=== PATIENT | female | born 1935 | race Asian ===

== ENCOUNTER 2016-06-18 14:16 | Outpatient (CLI) | payer OTHER ==
[~2016-06-18 14:16] MED LIST: ACID REDUCE PO; ALPR0.2566 PO; BENZ100C8 PO; CYCLOSPORINE100 M1 OR; CYCLOSPORINE100 M1 PO; DOXYCYCL HYC100 M1 OR; FE TABS325 MG PO; HYDR10TA10 PO; LOTENSIN HCT1 TAB PO; MACROBID100 MG OR; MEGE40SU6 PO; NEURONTIN 100M100 MG OR; PENTOXIFYLLINE400 M1 PO; PRAVACHOL20 MG PO; PREDNISOLONE1 % OPTH; PREDNISONE10 MG PO; SULFASALAZIN500 M1 PO; TRIA0.1C19 TOP; TRIA0.1C5 TOP; WARFARIN5 MG PO
[2016-06-18 15:33] LABS: POTASSIUM 3.6 mmol/L (3.6-5.2)
[2016-06-18 15:40] LABS: PLATELET COUNT 191 K/uL (152-353)
== END 2016-06-18 19:10 | disposition home or self-care (01) ==
LOC: LABW 14:16
PROVIDERS: Nurse Practitioner Family
DX: M25.562 Pain in left knee (principal); M25.561 Pain in right knee; R60.0 Localized edema
CPT/HCPCS: 36415; 80053; 85027; 85610

== ENCOUNTER 2017-10-27 14:43 | Outpatient (CLI) | payer OTHER ==
[2017-10-27 15:58] LABS: PLATELET COUNT 207 K/uL (152-353)
[2017-10-27 16:21] LABS: POTASSIUM 3.4 mmol/L (3.6-5.2)
== END 2017-10-27 22:47 | disposition home or self-care (01) ==
LOC: LABW 14:43
PROVIDERS: Internal Medicine Nephrology
DX: N18.3 Chronic kidney disease, stage 3 (moderate) (principal); E78.4 Other hyperlipidemia
CPT/HCPCS: 36415; 80053; 85027

== ENCOUNTER 2019-03-24 12:03 | Outpatient (CLI) | payer OTHER ==
[2019-03-24 12:37] LABS: POTASSIUM 3.9 mmol/L (3.6-5.2)
== END 2019-03-24 20:16 | disposition home or self-care (01) ==
LOC: LABW 12:03
PROVIDERS: Internal Medicine Nephrology
DX: N18.3 Chronic kidney disease, stage 3 (moderate) (principal); R60.0 Localized edema; E78.49 Other hyperlipidemia; L12.8 Other pemphigoid; E56.9 Vitamin deficiency, unspecified
CPT/HCPCS: 36415; 80048

== ENCOUNTER 2019-11-01 10:24 | Outpatient (CLI) | payer OTHER ==
[2019-11-01 10:54] LABS: PLATELET COUNT 174 K/uL (152-353)
== END 2019-11-01 19:03 | disposition home or self-care (01) ==
LOC: LABW 10:24
PROVIDERS: Internal Medicine Nephrology
DX: E56.8 Deficiency of other vitamins (principal); E78.49 Other hyperlipidemia; L12.8 Other pemphigoid; N18.3 Chronic kidney disease, stage 3 (moderate); R60.0 Localized edema
CPT/HCPCS: 36415; 80053; 82306; 83970; 84100; 85027

== ENCOUNTER 2021-05-23 10:42 | Outpatient (CLI) | payer OTHER | END 2021-05-23 19:57 | disposition home or self-care (01) | LOC: US 10:42 | PROVIDERS: ATTEND Nurse Practitioner Family | DX: E04.1 Nontoxic single thyroid nodule (principal) ==

== ENCOUNTER 2021-07-14 09:35 | Outpatient (CLI) | payer OTHER ==
[2021-07-14 10:31] LABS: PLATELET COUNT 377 K/uL (152-353)
== END 2021-07-14 19:09 | disposition home or self-care (01) ==
LOC: LABW 09:35
PROVIDERS: ATTEND Internal Medicine Nephrology
DX: E56.8 Deficiency of other vitamins (principal); E78.49 Other hyperlipidemia; L12.8 Other pemphigoid; N18.4 Chronic kidney disease, stage 4 (severe); N25.81 Secondary hyperparathyroidism of renal origin; R60.0 Localized edema; R82.998 Other abnormal findings in urine
CPT/HCPCS: 36415; 81000; 82306; 82570; 82610; 82728; 83540; 83550; 83970; 84156; 85027; 87077; 87086; 87088; 87185

== ENCOUNTER 2021-10-21 08:38 | Outpatient (CLI) | payer OTHER ==
[2021-10-21 09:31] LABS: PLATELET COUNT 184 K/uL (152-353)
[2021-10-21 09:36] LABS: POTASSIUM 3.8 mmol/L (3.6-5.2)
== END 2021-10-21 18:50 | disposition home or self-care (01) ==
LOC: LABW 08:38
PROVIDERS: ATTEND Internal Medicine Nephrology
DX: D64.9 Anemia, unspecified (principal); N18.9 Chronic kidney disease, unspecified; Z79.01 Long term (current) use of anticoagulants; N18.4 Chronic kidney disease, stage 4 (severe); N18.30 Chronic kidney disease, stage 3 unspecified; R60.0 Localized edema; E78.5 Hyperlipidemia, unspecified; N25.81 Secondary hyperparathyroidism of renal origin; L12.9 Pemphigoid, unspecified; E56.9 Vitamin deficiency, unspecified
CPT/HCPCS: 36415; 80069; 81002; 82306; 82570; 82728; 83540; 83550; 83970; 84156; 85027

== ENCOUNTER 2021-11-17 10:50 | Outpatient (CLI) | payer OTHER | END 2021-11-17 18:58 | disposition home or self-care (01) | LOC: RAD 10:50 | PROVIDERS: ATTEND Nurse Practitioner Family | DX: M25.561 Pain in right knee (principal) ==

== ENCOUNTER 2021-11-28 14:54 | Outpatient (CLI) | payer OTHER | END 2021-11-28 19:12 | disposition home or self-care (01) | LOC: LABW 14:54 | PROVIDERS: ATTEND Nurse Practitioner Family | DX: D64.89 Other specified anemias (principal) | CPT/HCPCS: 82272 ==

== ENCOUNTER 2022-02-23 14:27 | Outpatient (CLI) | payer OTHER ==
[2022-02-23 15:28] LABS: POTASSIUM 3.7 mmol/L (3.6-5.2)
== END 2022-02-23 20:03 | disposition home or self-care (01) ==
LOC: LABW 14:27
PROVIDERS: ATTEND Internal Medicine Nephrology
DX: E56.9 Vitamin deficiency, unspecified (principal); E78.49 Other hyperlipidemia; L12.8 Other pemphigoid; D64.89 Other specified anemias; N18.4 Chronic kidney disease, stage 4 (severe); N25.81 Secondary hyperparathyroidism of renal origin; R60.0 Localized edema; Z79.01 Long term (current) use of anticoagulants; I12.9 Hypertensive chronic kidney disease with stage 1 through stage 4 chronic kidney disease, or unspecified chronic kidney disease
CPT/HCPCS: 36415; 80069; 81002; 82306; 83735; 83970; 85027

== ENCOUNTER 2022-02-25 11:13 | Outpatient (CLI) | payer OTHER ==
[2022-02-25 12:36] LABS: PLATELET COUNT 169 K/uL (152-353)
== END 2022-02-25 23:59 | disposition home or self-care (01) ==
LOC: LAB 11:13
PROVIDERS: ATTEND Internal Medicine Nephrology
DX: E56.8 Deficiency of other vitamins (principal); E78.49 Other hyperlipidemia; L12.8 Other pemphigoid; D64.89 Other specified anemias; N18.4 Chronic kidney disease, stage 4 (severe); N25.81 Secondary hyperparathyroidism of renal origin; R60.0 Localized edema; Z79.01 Long term (current) use of anticoagulants; I12.9 Hypertensive chronic kidney disease with stage 1 through stage 4 chronic kidney disease, or unspecified chronic kidney disease
CPT/HCPCS: 36415; 85027

== ENCOUNTER 2022-07-01 10:23 | Outpatient (CLI) | payer OTHER ==
[2022-07-01 10:57] LABS: PLATELET COUNT 168 K/uL (152-353)
[2022-07-01 11:02] LABS: POTASSIUM 3.7 mmol/L (3.6-5.2)
== END 2022-07-01 22:56 | disposition home or self-care (01) ==
LOC: LABW 10:23
PROVIDERS: ATTEND Internal Medicine Nephrology
DX: E56.9 Vitamin deficiency, unspecified (principal); E78.49 Other hyperlipidemia; L12.9 Pemphigoid, unspecified; D64.89 Other specified anemias; N18.4 Chronic kidney disease, stage 4 (severe); N25.81 Secondary hyperparathyroidism of renal origin; R60.0 Localized edema; Z79.01 Long term (current) use of anticoagulants; I12.9 Hypertensive chronic kidney disease with stage 1 through stage 4 chronic kidney disease, or unspecified chronic kidney disease; R82.998 Other abnormal findings in urine
CPT/HCPCS: 36415; 80069; 81000; 82306; 82570; 82728; 83540; 83550; 83970; 84156; 85027; 87086; 87088

== ENCOUNTER 2022-07-20 12:42 | Outpatient (CLI) | payer OTHER | END 2022-07-20 19:03 | disposition home or self-care (01) | LOC: MRI 12:42 | PROVIDERS: ATTEND Nurse Practitioner Family | DX: I12.9 Hypertensive chronic kidney disease with stage 1 through stage 4 chronic kidney disease, or unspecified chronic kidney disease (principal); N18.9 Chronic kidney disease, unspecified; R55 Syncope and collapse; R56.9 Unspecified convulsions; I67.9 Cerebrovascular disease, unspecified; Z79.01 Long term (current) use of anticoagulants ==

== ENCOUNTER 2022-10-22 11:02 | Outpatient (CLI) | payer OTHER ==
[2022-10-22 12:02] LABS: PLATELET COUNT 233 K/uL (152-353)
[2022-10-22 12:27] LABS: POTASSIUM 4.1 mmol/L (3.6-5.2)
== END 2022-10-22 19:22 | disposition home or self-care (01) ==
LOC: LABW 11:02
PROVIDERS: ATTEND Internal Medicine Nephrology
DX: E56.9 Vitamin deficiency, unspecified (principal); E78.49 Other hyperlipidemia; L12.8 Other pemphigoid; D64.89 Other specified anemias; N18.4 Chronic kidney disease, stage 4 (severe); R82.998 Other abnormal findings in urine
CPT/HCPCS: 36415; 80069; 81000; 82043; 82306; 82728; 83540; 83550; 83970; 84156; 85027; 87077; 87086; 87088; 87185; 87186

== ENCOUNTER 2023-05-10 16:11 | Outpatient (CLI) | payer OTHER ==
[~2023-05-10 16:11] MED LIST changes: +AMLODIPINE BESYLATE PO; +ASCO500T18 PO; +BIPAP; +ELIQUIS5 MG PO; -FE TABS325 MG PO; +FERROUS SULF325 M1 PO; +GABA300C2 PO; +GENERLAC10 GM/15 M PO; +JANTOVEN3 MG PO; +JANTOVEN4 MG PO; +LEVE500T5 PO; +MULTIVITAMI2 PO; -NEURONTIN 100M100 MG OR; +O2; +ONDANSETRON HYDR4 MG PO; +PRAVASTATIN PO; +ZINC SULFATE220 M1 PO
[2023-05-10 17:49] LABS: PLATELET COUNT 166 K/uL (152-353)
[2023-05-10 18:01] LABS: POTASSIUM 3.8 mmol/L (3.6-5.2)
[2023-05-10 18:04] LABS: PARTIAL THROMBOPLASTIN TIME 24.5 SECONDS (23.9-36.7)
== END 2023-05-10 19:49 | disposition home or self-care (01) ==
LOC: LABW 16:11
PROVIDERS: ATTEND Internal Medicine
DX: M79.89 Other specified soft tissue disorders (principal); I26.99 Other pulmonary embolism without acute cor pulmonale; D64.89 Other specified anemias; N93.9 Abnormal uterine and vaginal bleeding, unspecified; R06.02 Shortness of breath
CPT/HCPCS: 36415; 80053; 83880; 85027; 85379; 85610; 85730

== ENCOUNTER 2023-05-29 16:31 | Emergency (ER) | payer OTHER ==
[~2023-05-29] VITALS: Ht 167.6 cm; Wt 102.1 kg
[2023-05-29 16:54] VITALS: TEMP 97.9
[2023-05-29 17:21] LABS: PLATELET COUNT 128 K/uL (152-353)
[2023-05-29 17:28] LABS: POTASSIUM 3.8 mmol/L (3.6-5.2)
[2023-05-29] MEDS ORDERED: CEFTRIAXONE SODIUM 1,000 MG in SOD. CHLORIDE 0.9% 50 ML IVPB ONE (17:43)
[2023-05-29] MEDS ORDERED: CEFTRIAXONE SODIUM 1,000 MG IV ONE (17:46)
[2023-05-29] MEDS ORDERED: SOD. CHLORIDE 0.9% 50 ML IV ONE (17:46)
[2023-05-29] MEDS ORDERED: SODIUM CHLORIDE 0.9% 1,000 ML IV ONE (19:23)
[2023-05-29] MEDS ORDERED: SODIUM CHLORIDE 0.9% 1000ML BAG IV ONE (19:26)
[2023-05-29 20:20] VITALS: BP 155/63
== END 2023-05-29 20:25 | disposition still patient (30) ==
LOC: ED 16:31
PROVIDERS: Internal Medicine Endocrinology, Diabetes & Metabolism
DX: R41.82 Altered mental status, unspecified (principal); N39.0 Urinary tract infection, site not specified
CPT/HCPCS: 36415; 80053; 81000; 83605; 84484; 85027; 87077; 87086; 87088; 87186; 93005; 96361; 96365; 99284; J0696